=== PATIENT | female | born 2000 | race African-American/Black ===

== ENCOUNTER 2022-02-09 04:51 | Emergency (ER) | payer SELFPAY ==
[~2022-02-09] VITALS: Ht 165.1 cm; Wt 53.0 kg
[2022-02-09 05:07] VITALS: BP 107/62
[2022-02-09] MEDS ORDERED: ACETAMINOPHEN 325MG TABLET PO STA (05:51)
[2022-02-09 06:31] LABS: HEMATOCRIT. 31.6 % (36.0-48.0); MEAN CORPUSCULAR HEMOGLOBIN 22.5 pg (28.0-32.0); MEAN CORPUSCULAR VOLUME 70.9 fL (81.0-99.0); MEAN PLATELET VOLUME 7.6 fl (7.4-10.4); PLATELET 309 x1000/uL (130-400); RED BLOOD CELL COUNT 4.45 mill/uL (4.2-5.4); RED CELL DISTRIBUTION WIDTH 18.6 % (11.6-14.6)
[2022-02-09 06:39] LABS: CHLORIDE 112 mEq/L (98-107)
[2022-02-09 07:06] LABS: B-HCG QUANTITATIVE 19916 mIU/mL (<3)
[2022-02-09 07:47] LABS: PLATELET ESTIMATE NORMAL
== END 2022-02-09 08:53 | disposition left against medical advice (07) ==
LOC: ER 04:51
DX: O26.892 Other specified pregnancy related conditions, second trimester (principal); R10.32 Left lower quadrant pain; E87.8 Other disorders of electrolyte and fluid balance, not elsewhere classified; Z3A.16 16 weeks gestation of pregnancy
CPT/HCPCS: 36415; 80053; 84702; 85025; 86850; 86900; 99283

== ENCOUNTER 2022-02-12 19:53 | Emergency (ER) | payer SELFPAY ==
[~2022-02-12] VITALS: Ht 167.6 cm; Wt 53.5 kg
[2022-02-12 20:12] VITALS: BP 104/63
== END 2022-02-13 02:11 | disposition left against medical advice (07) ==
LOC: ER 19:53
DX: Z53.21 Procedure and treatment not carried out due to patient leaving prior to being seen by health care provider (principal)

== ENCOUNTER 2023-06-30 19:38 | Emergency (ER) | payer MEDICAID ==
[~2023-06-30] VITALS: Ht 162.6 cm; Wt 59.0 kg
[2023-06-30 19:54] VITALS: BP 113/49; PULSE 74; RESP 16; TEMP 98.2; O2SAT 98
[2023-06-30 20:08] LABS: CLARITY URINE CLEAR (CLEAR); COLOR URINE YELLOW (YELLOW); GLUCOSE URINE NEGATIVE (NEGATIVE); KETONES URINE NEGATIVE (NEGATIVE); LEUKOCYTE ESTERASE URINE NEGATIVE (NEGATIVE); NITRITE URINE NEGATIVE (NEGATIVE); OCCULT BLOOD URINE NEGATIVE (NEGATIVE); PH URINE 6.5 (4.5-8.0); PROTEIN URINE NEGATIVE (NEGATIVE); SPECIFIC GRAVITY URINE 1.024 (1.005-1.030); UROBILINOGEN URINE 0.2 E.U./dL (0.2-1.0)
[2023-06-30 21:45] LABS: HEMATOCRIT. 34.9 % (36.0-48.0); HEMOGLOBIN. 11.4 g/dL (12.0-16.0); MEAN CORPUSCULAR HEMOGLOBIN 22.1 pg (28.0-32.0); MEAN CORPUSCULAR HGB CONC 32.7 g/dL (31.0-37.0); MEAN CORPUSCULAR VOLUME 67.6 fL (81.0-99.0); MEAN PLATELET VOLUME 7.7 fl (7.4-10.4); PLATELET 356 x1000/uL (130-400); RED BLOOD CELL COUNT 5.16 mill/uL (4.2-5.4); RED CELL DISTRIBUTION WIDTH 16.9 % (11.6-14.6); WHITE BLOOD COUNT 11.2 x1000/uL (4.5-11.0)
[2023-06-30 21:46] LABS: DIFFERENTIAL COMMENT 1
[2023-06-30 22:02] LABS: ALANINE AMINOTRANSFERASE 8 IU/L (10-49); ALBUMIN 4.1 g/dL (3.2-4.8); ASPARTATE AMINOTRANSFERASE 14 IU/L (<34); B-HCG QUANTITATIVE 3017 mIU/mL (<3); BILIRUBIN TOTAL 0.3 mg/dL (0.1-1.0); CALCIUM 9.2 mg/dL (8.7-10.4); CARBON DIOXIDE 28 mEq/L (21-32); CHLORIDE 109 mEq/L (98-107); CREATININE 0.7 mg/dL (0.6-1.0); GLUCOSE 71 mg/dL (70-105); POTASSIUM 3.4 mEq/L (3.5-5.1); PROTEIN TOTAL 7.3 g/dL (6.0-8.3); SODIUM 143 mEq/L (136-145); UREA NITROGEN BLOOD 10 mg/dL (9-23)
[2023-06-30 22:10] LABS: ANISOCYTOSIS 1+; HYPOCHROMASIA 1+; MICROCYTOSIS 3+; PLATELET ESTIMATE NORMAL
[2023-06-30 22:11] LABS: OVALOCYTES 1+
[2023-06-30] MEDS ORDERED: PREN1COM16 MT (23:28)
== END 2023-06-30 23:35 | disposition home or self-care (01) ==
LOC: ER 19:38
DX: O26.891 Other specified pregnancy related conditions, first trimester (principal); R10.9 Unspecified abdominal pain; Z3A.01 Less than 8 weeks gestation of pregnancy; R10.2 Pelvic and perineal pain
CPT/HCPCS: 36415; 76830; 76856; 80053; 81003; 81025; 84702; 85025; 99284

== ENCOUNTER 2023-12-15 15:50 | Emergency (ER) | payer MEDICAID ==
[~2023-12-15] VITALS: Ht 165.1 cm; Wt 66.0 kg
[~2023-12-15 15:50] MED LIST: PREN1COM16 MT; PYRI25TA4 MT
[2023-12-15 16:16] VITALS: BP 106/57; PULSE 94; RESP 12; TEMP 98.3; O2SAT 100
[2023-12-15 16:39] LABS: BASOPHILS % 1.9 % (0.0-2.0); DIFFERENTIAL COMMENT 1; EOSINOPHILS % 0.2 % (0.0-5.0); HEMATOCRIT. 34.3 % (36.0-48.0); MEAN CORPUSCULAR HEMOGLOBIN 21.6 pg (28.0-32.0); MEAN CORPUSCULAR VOLUME 67.5 fL (81.0-99.0); MEAN PLATELET VOLUME 8.2 fl (7.4-10.4); MONOCYTES % 5.9 % (2.0-8.0); PLATELET 290 x1000/uL (130-400); RED BLOOD CELL COUNT 5.08 mill/uL (4.2-5.4); RED CELL DISTRIBUTION WIDTH 16.7 % (11.6-14.6); WHITE BLOOD COUNT 12.4 x1000/uL (4.5-11.0)
[2023-12-15 16:42] LABS: CHLORIDE 108 mEq/L (98-107); POTASSIUM 3.8 mEq/L (3.5-5.1); SODIUM 139 mEq/L (136-145)
[2023-12-15 16:43] LABS: CALCIUM 9.1 mg/dL (8.7-10.4); CARBON DIOXIDE 24 mEq/L (21-32)
[2023-12-15 16:45] LABS: ADD RBC MORPHOLOGY YES
[2023-12-15 16:48] LABS: CREATININE 0.5 mg/dL (0.6-1.0); GLUCOSE 77 mg/dL (70-105); UREA NITROGEN BLOOD 6 mg/dL (9-23)
[2023-12-15 16:50] LABS: ALANINE AMINOTRANSFERASE 10 IU/L (10-49); ALBUMIN 4.3 g/dL (3.2-4.8); ASPARTATE AMINOTRANSFERASE 18 IU/L (<34); BILIRUBIN TOTAL 0.3 mg/dL (0.1-1.0)
[2023-12-15 16:57] LABS: BILIRUBIN DIRECT < 0.1 mg/dL (<=3.0)
[2023-12-15 17:08] LABS: B-HCG QUANTITATIVE 112715 mIU/mL (<3)
[2023-12-15 17:39] LABS: HYPOCHROMASIA 1+
[2023-12-15 17:40] LABS: MICROCYTOSIS 2+; PLATELET ESTIMATE NORMAL; TARGET CELLS 1+
[2023-12-16] MEDS ORDERED: TOPUD MT (03:14)
[2023-12-16] MEDS ORDERED: NITR-87 MT (05:07)
== END 2023-12-15 19:13 | disposition left against medical advice (07) ==
LOC: ER 15:50
DX: O26.892 Other specified pregnancy related conditions, second trimester (principal); R10.9 Unspecified abdominal pain; Z3A.25 25 weeks gestation of pregnancy
CPT/HCPCS: 36415; 80048; 80076; 84702; 85025

== ENCOUNTER 2024-05-05 23:42 | Emergency (ER) | payer MEDICAID ==
[~2024-05-05] VITALS: Ht 160 cm; Wt 70.0 kg
[~2024-05-05 23:42] MED LIST changes: +NITR-87 MT; +TOPUD MT
[2024-05-06 00:03] VITALS: TEMP 37.05852
[2024-05-06 00:17] LABS: BASOPHILS % 0.5 % (0.0-2.0); DIFFERENTIAL COMMENT 0; EOSINOPHILS % 0.4 % (0.0-5.0); HEMATOCRIT. 34.7 % (36.0-48.0); HEMOGLOBIN. 11.3 g/dL (12.0-16.0); LYMPHOCYTES % 27.6 % (20.0-50.0); MEAN CORPUSCULAR HEMOGLOBIN 22.9 pg (28.0-32.0); MEAN CORPUSCULAR HGB CONC 32.5 g/dL (31.0-37.0); MEAN CORPUSCULAR VOLUME 70.5 fL (81.0-99.0); MEAN PLATELET VOLUME 8.9 fl (7.4-10.4); MONOCYTES % 5.6 % (2.0-8.0); NEUTROPHILS % 65.9 % (40.0-76.0); PLATELET 257 x1000/uL (130-400); RED BLOOD CELL COUNT 4.92 mill/uL (4.2-5.4); WHITE BLOOD COUNT 13.2 x1000/uL (4.5-11.0)
[2024-05-06 00:20] LABS: CHLORIDE 112 mEq/L (98-107); POTASSIUM 4.7 mEq/L (3.5-5.1); SODIUM 143 mEq/L (136-145)
[2024-05-06 00:21] LABS: CALCIUM 9.2 mg/dL (8.7-10.4); CARBON DIOXIDE 24 mEq/L (21-32)
[2024-05-06 00:26] LABS: CREATININE 0.6 mg/dL (0.6-1.0); GLUCOSE 80 mg/dL (70-105); UREA NITROGEN BLOOD 6 mg/dL (9-23)
[2024-05-06 00:28] LABS: INR 0.9; PROTHROMBIN TIME 10.2 sec (9.6-11.0)
[2024-05-06] MEDS: LACTATED RINGERS 1,000 ML IV SCH (00:54)
[2024-05-06 01:41] VITALS: TEMP 98.7
[2024-05-06 02:37] VITALS: O2SAT 100
[2024-05-06 03:03] VITALS: BP 109/55; PULSE 74; RESP 18; O2SAT 100
== END 2024-05-06 03:17 | disposition short-term general hospital (02) ==
LOC: ER 05-06 00:09
DX: O60.03 Preterm labor without delivery, third trimester (principal); Z3A.33 33 weeks gestation of pregnancy
CPT/HCPCS: 76815; 99285; 80048; 85025; 85610; 86850; 86900; 86901; 36415; J7120

== ENCOUNTER 2024-06-05 18:15 | Emergency (ER) | payer MEDICAID ==
[~2024-06-05] VITALS: Ht 165.1 cm; Wt 70.0 kg
[2024-06-05 18:18] VITALS: O2SAT 98
[2024-06-05 18:48] LABS: BASOPHILS % 0.7 % (0.0-2.0); DIFFERENTIAL COMMENT 0; EOSINOPHILS % 0.5 % (0.0-5.0); HEMATOCRIT. 32.5 % (36.0-48.0); HEMOGLOBIN. 10.3 g/dL (12.0-16.0); LYMPHOCYTES % 26.6 % (20.0-50.0); MEAN CORPUSCULAR HEMOGLOBIN 22.4 pg (28.0-32.0); MEAN CORPUSCULAR HGB CONC 31.6 g/dL (31.0-37.0); NEUTROPHILS % 67.2 % (40.0-76.0); PLATELET 224 x1000/uL (130-400); RED BLOOD CELL COUNT 4.58 mill/uL (4.2-5.4); RED CELL DISTRIBUTION WIDTH 17.7 % (11.6-14.6); WHITE BLOOD COUNT 11.9 x1000/uL (4.5-11.0)
[2024-06-05 18:55] LABS: CHLORIDE 111 mEq/L (98-107); POTASSIUM 3.4 mEq/L (3.5-5.1); SODIUM 144 mEq/L (136-145)
[2024-06-05 18:56] LABS: CALCIUM 9.2 mg/dL (8.7-10.4); CARBON DIOXIDE 26 mEq/L (21-32)
[2024-06-05 19:01] VITALS: BP 115/51; PULSE 98; RESP 16; TEMP 37.00296; O2SAT 99
[2024-06-05 19:01] LABS: CREATININE 0.7 mg/dL (0.6-1.0); GLUCOSE 96 mg/dL (70-105); UREA NITROGEN BLOOD 8 mg/dL (9-23)
[2024-06-05 19:05] LABS: CLARITY URINE CLEAR (CLEAR); COLOR URINE YELLOW (YELLOW); GLUCOSE URINE NEGATIVE (NEGATIVE); KETONES URINE TRACE (NEGATIVE); LEUKOCYTE ESTERASE URINE 2+ (NEGATIVE); NITRITE URINE NEGATIVE (NEGATIVE); OCCULT BLOOD URINE NEGATIVE (NEGATIVE); PROTEIN URINE TRACE (NEGATIVE)
[2024-06-05 19:42] LABS: BACTERIA URINE 2+; RBC URINE 0-2 /hpf (0-2); SQUAMOUS EPITHELIAL CELL URINE 1+ /lpf (RARE/1+)
== END 2024-06-05 19:10 | disposition home or self-care (01) ==
LOC: ER 18:15
DX: O26.893 Other specified pregnancy related conditions, third trimester (principal); Z3A.37 37 weeks gestation of pregnancy; Z98.890 Other specified postprocedural states
CPT/HCPCS: 36415; 76815; 80048; 81003; 85025; 86850; 86900; 99284

== ENCOUNTER 2024-08-02 10:07 | Emergency (ER) | payer MEDICAID ==
[~2024-08-02] VITALS: Ht 162.6 cm; Wt 59.9 kg
[2024-08-02 10:33] VITALS: BP 101/25; PULSE 64; RESP 16; TEMP 98.2; O2SAT 100
[2024-08-02 13:35] LABS: HCG SCREEN NEGATIVE
== END 2024-08-02 14:04 | disposition home or self-care (01) ==
LOC: ER 10:07
DX: Z71.1 Person with feared health complaint in whom no diagnosis is made (principal); Z32.02 Encounter for pregnancy test, result negative; Z98.890 Other specified postprocedural states
CPT/HCPCS: 36415; 81025; 84702; 84703; 99283

== ENCOUNTER 2024-08-21 12:07 | Emergency (ER) | payer MEDICAID ==
[~2024-08-21] VITALS: Ht 162.6 cm; Wt 74.4 kg
[2024-08-21 12:09] VITALS: O2SAT 99
[2024-08-21 12:19] VITALS: BP 104/32; PULSE 74; RESP 16; TEMP 37.1; O2SAT 100
[2024-08-21 15:56] LABS: CLARITY URINE CLEAR (CLEAR); COLOR URINE YELLOW (YELLOW)
[2024-08-21 15:57] LABS: GLUCOSE URINE NEGATIVE (NEGATIVE); KETONES URINE NEGATIVE (NEGATIVE); LEUKOCYTE ESTERASE URINE NEGATIVE (NEGATIVE); NITRITE URINE NEGATIVE (NEGATIVE); OCCULT BLOOD URINE NEGATIVE (NEGATIVE); PH URINE 7.5 (4.5-8.0); PROTEIN URINE NEGATIVE (NEGATIVE)
[2024-08-21 16:30] LABS: HEMATOCRIT. 35.6 % (36.0-48.0); HEMOGLOBIN. 11.1 g/dL (12.0-16.0); MEAN CORPUSCULAR HEMOGLOBIN 21.7 pg (28.0-32.0); MEAN CORPUSCULAR HGB CONC 31.3 g/dL (31.0-37.0); MEAN CORPUSCULAR VOLUME 69.3 fL (81.0-99.0); MEAN PLATELET VOLUME 7.6 fl (7.4-10.4); PLATELET 248 x1000/uL (130-400); RED BLOOD CELL COUNT 5.13 mill/uL (4.2-5.4); RED CELL DISTRIBUTION WIDTH 17.6 % (11.6-14.6); WHITE BLOOD COUNT 7.1 x1000/uL (4.5-11.0)
[2024-08-21 16:34] LABS: DIFFERENTIAL COMMENT 1
[2024-08-21 16:50] LABS: CHLORIDE 109 mEq/L (98-107); POTASSIUM 3.6 mEq/L (3.5-5.1); SODIUM 143 mEq/L (136-145)
[2024-08-21 16:51] LABS: CALCIUM 9.6 mg/dL (8.7-10.4); CARBON DIOXIDE 25 mEq/L (21-32)
[2024-08-21 16:56] LABS: CREATININE 0.8 mg/dL (0.6-1.0); GLUCOSE 98 mg/dL (70-105); UREA NITROGEN BLOOD 11 mg/dL (9-23)
[2024-08-21] MEDS ORDERED: DOXY100C5 MT (17:20)
[2024-08-21 17:27] LABS: ANISOCYTOSIS 1+; PLATELET ESTIMATE NORMAL
[2024-08-21 17:28] LABS: HYPOCHROMASIA 1+; MICROCYTOSIS 2+
[2024-08-21] MEDS: CEFTRIAXONE SODIUM 500MG VIAL IM ONE (18:01)
[2024-08-24 04:08] LABS: CHLAMYDIA TRACHOMATIS NAA Negative (Negative); NEISSERIA GONORRHOEAE NAA Negative (Negative)
== END 2024-08-21 18:08 | disposition home or self-care (01) ==
LOC: ER 12:07
DX: L90.5 Scar conditions and fibrosis of skin (principal); Z11.8 Encounter for screening for other infectious and parasitic diseases; Z79.899 Other long term (current) drug therapy; Z98.890 Other specified postprocedural states
CPT/HCPCS: 99283; 86592; 87491; 87591; 80048; 81003; 81025; 83690; 85025; 36415; 96372; J0696

== ENCOUNTER 2025-02-28 09:32 | Emergency (ER) | payer MEDICAID ==
[~2025-02-28] VITALS: Ht 165.1 cm; Wt 54.0 kg
[~2025-02-28 09:32] MED LIST changes: +DOXY100C5 MT
[2025-02-28 09:35] VITALS: TEMP 36.8; O2SAT 98
[2025-02-28] MEDS: IBUPROFEN 400MG TABLET PO ONE (09:53)
[2025-02-28] MEDS: ACETAMINOPHEN 325MG TABLET PO ONE (09:54)
[2025-02-28] MEDS ORDERED: IBUP-2028 MT (11:13)
[2025-02-28] MEDS ORDERED: TOPUD PO (11:13)
[2025-02-28 11:42] VITALS: BP 100/67; PULSE 64; RESP 18; O2SAT 100
== END 2025-02-28 13:04 | disposition home or self-care (01) ==
LOC: ER 09:32
DX: S80.02XA Contusion of left knee, initial encounter (principal); Z79.899 Other long term (current) drug therapy; Z04.3 Encounter for examination and observation following other accident; W19.XXXA Unspecified fall, initial encounter; Y93.89 Activity, other specified; Y92.89 Other specified places as the place of occurrence of the external cause; Y99.8 Other external cause status
CPT/HCPCS: 99283; 81025; 73562; A6449